=== PATIENT | female | born 1985 | race Caucasian/White ===

== ENCOUNTER 2017-06-05 21:02 | Inpatient (IN) | payer BC, OTHER, SELFPAY ==
[2017-06-05 21:38] VITALS: BMI 24.7
[2017-06-05 22:05] LABS: Amnisure Test RUPTURE DETECTED (No Rupture)
[2017-06-05 22:06] LABS: Amnisure Internal Control QC ACCEPTABLE (ACCEPTABLE)
[2017-06-05] MEDS: Lactated Ringer's 1,000 ML IV SCH (22:40)
[2017-06-05] MEDS ORDERED: Zolpidem Tartrate 5 MG TAB PO PRN (22:46)
[2017-06-05] MEDS ORDERED: LR / Pitocin 40 units/1000 ml 1,000 ML IV PRN (22:46)
[2017-06-05] MEDS ORDERED: Lidocaine 1% (PF) 30 ML VIAL SC PRN (22:46)
[2017-06-05] MEDS ORDERED: LR 500 ML/Oxytocin 10 units 500 ML IV SCH (22:46)
[2017-06-05] MEDS ORDERED: Acetaminophen/Codeine 30-300mg Tablet PO PRN ×2 (22:46)
[2017-06-05] MEDS ORDERED: Promethazine HCl 25 MG/ML VIAL IM PRN (22:46)
[2017-06-05] MEDS ORDERED: Ibuprofen 800 MG TAB PO PRN (22:46)
[2017-06-05] MEDS ORDERED: Ondansetron HCl/PF 4 MG/2 ML Vial IVP PRN (22:46)
[2017-06-05] MEDS ORDERED: Lactated Ringer's 1,000 ML IV SCH (23:00)
[2017-06-05 23:11] LABS: Hemoglobin 11.4 g/dL (12.0-16.0); Mean Corpuscular Hemoglobin 32.6 pg (27.0-31.0); Mean Corpuscular Volume 93.2 fl (81.0-99.0); Mean Platelet Volume 8.7 fL (7.4-10.4); Platelet Count 214 thou/uL (130-400); RBC Distribution Width 11.2 % (11.5-14.5); Red Blood Cell (RBC) Count 3.49 mill/uL (4.20-5.40); White Blood Cell (WBC) Count 10.6 thou/uL (4.8-10.8)
[2017-06-05] MEDS ORDERED: DISCONTINUE ALL PREVIOUS NARCOTICS FS SCH (23:45)
[2017-06-05 23:48] LABS: Syphilis Antibody Nonreactive (Nonreactive); Syphilis Antibody Index 0.02 S/CO (<1.00 Non-Reactive)
[2017-06-05 23:54] LABS: HBSAg Index 0.19 S/CO (0-0.99); Hep B Surf Ag Non-Reactive S/CO (NonReactive)
[2017-06-06] MEDS: Bupivacaine 0.5% 20 ML, Fentanyl 400 MCG in Sodium Chloride 0.9% 72 ML EPIDURAL SCH ×3 (00:35→20:52)
[2017-06-06] MEDS ORDERED: Eucerin (Mineral Oil/Petrolatum,White) 30 gm Jar TOP PRN ×2 (00:38→23:53)
[2017-06-06] MEDS ORDERED: Acetaminophen 325 MG TAB PO PRN (00:38)
[2017-06-06] MEDS ORDERED: Promethazine HCl 25 MG/ML VIAL IM PRN ×2 (00:38→23:53)
[2017-06-06] MEDS ORDERED: Lactated Ringer's 500 ML IV PRN (00:38)
[2017-06-06] MEDS ORDERED: Ondansetron HCl/PF 4 MG/2 ML Vial IVP PRN ×3 (00:38→23:53)
[2017-06-06] MEDS ORDERED: Naloxone HCl 0.4 mg/ml Vial IVP PRN ×4 (00:38→23:53)
[2017-06-06] MEDS ORDERED: diphenhydrAMINE 50 MG/ML VIAL IVP PRN ×2 (00:38→23:53)
[2017-06-06] MEDS ORDERED: ePHEDrine/0.9% NaCl/PF SYRINGE 50 mg/10 ml SLOW IVP PRN (00:38)
[2017-06-06] MEDS ORDERED: Communication Order-Pharmacy FS SCH ×2 (00:45→23:45)
[2017-06-06] MEDS ORDERED: Fentanyl 4mcg/Marcaine 0.1% Cassette 100 ML EPIDURAL SCH (00:45)
[2017-06-06] MEDS: Lactated Ringer's 1,000 ML IV SCH ×3 (01:20→21:35)
--- NOTE | 2017-06-06 04:00 | PDOC.LDHP ---
Labor and Delivery H&P Chief complaint: contractions, loss of fluid HPI: 31 yo G1 @ 38w0d who presents with c/o SROM and early labor. Anetpartum course complicated by h/o HSV, on suppression and depression, on Prozac. Current gestational age (weeks): 38 Due date: 06/20/17 Dating criteria: first trimester ultrasound Grav: 1 Para: 0 Current complications: none Abnormal US findings: No Past Medical History: HSV, Depression Current medications: pre- vitamins, other (Valtrex, Prozac) Previous surgical history: other (Breast augmentation) Allergies/Adverse Reactions: Allergies Allergy/AdvReac Type Severity Reaction Status Date / Time No Known Drug Allergies Allergy Verified 06/05/17 21:22 Social history: none - Physical Exam Vital signs reviewed and normal: yes FHT: category 2 (130s, mod jhon, +accels, one prolonged decel recently with recovery) [place] contractions every: q1-3 min - Vaginal Exam cm dilated: 4 (per RN ) Effacement: 100% Station: -2 - OB Labs Blood type: O RH: positive Antibody Screen: negative HIV: negative RPR: negative HEPSAg: negative 1 hour GCT: positive 3 hour GTT: negative GBS: negative Urine drug screen: not done Rubella: immune - Assessment 38 week IUP Latent labor SROM Category 2 FHTs, resolved h/o HSV Depression - Plan Plan: admit to L&D, labor augmentation if indicated, informed consent obtained, anesthesia consult for pain management -: On HSV suppression, no prodromal sx Monitor FHTs, suspect due to tachysystole which has resolved and FHTs improved.
[2017-06-06] MEDS ORDERED: Ketorolac Tromethamine 30 MG/ML VIAL ONE ×2 (12:02→23:13)
[2017-06-06] MEDS ORDERED: Ondansetron HCl/PF 4 MG/2 ML Vial ONE ×3 (12:02→23:33)
--- NOTE | 2017-06-06 17:19 | PDOC.LDPN ---
Labor & Delivery Progress Note - Subjective Subjective: comfortable - Objective Vital signs reviewed and normal: yes General: NAD Uterine fundus: non tender SVE: 7 Effacement: 75% Station: 0 FHT: category 1 (130s, mod jhon, +accels, no decels ) [place] contractions every: q2 min - Assessment (1) 38 weeks gestation of Code(s): Z3A.38 - 38 WEEKS GESTATION OF Current Visit: Yes Status : Acute (2) Active labor Code(s): SEO9753 - Current Visit: Yes Status: Acute -: Noted increased swelling of cervical exam, fetus in OP position, Manual rotation performed to CECIL position. Continue pitocin, adequate MVUs noted. Maternal position in hands/knees. Continue to monitor. Discussed with pt if no change, would recommend PLTCS, however, will allow for additional time currently.
[2017-06-06] MEDS ORDERED: CEFAZOLIN/Water 2 GM/20 ML SYRINGE ONE (22:18)
--- NOTE | 2017-06-06 22:23 | PDOC.LDPN ---
Labor & Delivery Progress Note - Subjective Subjective: comfortable - Objective Vital signs reviewed and normal: yes General: NAD Uterine fundus: non tender Dilation: 7-8 Effacement: 90% Station: 0 FHT: category 2 (140s, mod jhon, +accels, occasional late decels ) [place] contractions every: q2 min - Assessment (1) 38 weeks gestation of Code(s): Z3A.38 - 38 WEEKS GESTATION OF Current Visit: Yes Status : Acute (2) Active labor Code(s): FXT3613 - Current Visit: Yes Status: Acute -: SVE without significant change in last 8-9 hours. Protracted labor course. s/p manual rotation. Discussed protracted course with pt and recommended PLTCS due to arrest of dilation as exam by me remains largely unchanged. Pt amenable to procedure. To OR for PLTCS. Ancef and Azithromycin PPX.
[2017-06-06] MEDS ORDERED: Azithromycin 500 MG in Sodium Chloride 0.9% 250 ML 250 ML IVPB SCH (22:30)
[2017-06-06] MEDS ORDERED: CEFAZOLIN/Water 2 GM/20 ML SYRINGE SLOW IVP SCH (22:30)
[2017-06-06] MEDS ORDERED: Bicitra 30 ML UDCUP PO SCH (22:30)
[2017-06-06] MEDS ORDERED: Bicitra 30 ML UDCUP ONE (22:31)
[2017-06-06] MEDS ORDERED: EPINEPHrine 1 MG/ML AMP ONE (22:34)
[2017-06-06] MEDS ORDERED: Lidocaine 2% 10 ML INJ ONE (22:34)
[2017-06-06] MEDS ORDERED: Fentanyl 100 MCG/2 ML VIAL ONE (23:12)
[2017-06-06] MEDS ORDERED: Oxytocin 10 UNITS/ML VIAL ONE (23:13)
[2017-06-06] MEDS ORDERED: Morphine PF 1 MG/ML SYR IVP SCH (23:15)
[2017-06-06] MEDS ORDERED: Ketorolac Tromethamine 30 MG/ML VIAL IVP SCH (23:45)
[2017-06-06 23:48] LABS: Actual Bicarbonate (HCO3a) 26.6 mEq/L (22-26); Base Excess (BEa) -2.8 mEq/L (0 (+/-) 2.5)
[2017-06-06] MEDS ORDERED: Meperidine HCl/PF 25 MG/ML VIAL SLOW IVP PRN (23:53)
[2017-06-06] MEDS ORDERED: Promethazine HCl 25 MG SUPP PR PRN (23:53)
[2017-06-06] MEDS ORDERED: Naloxone HCl 0.4 mg/ml Vial IV PRN (23:53)
[2017-06-06] MEDS ORDERED: HYDROmorphone 2 MG/ML VIAL SLOW IVP PRN (23:53)
[2017-06-06] MEDS ORDERED: Acetaminophen 1,000 MG in Premix Bag 1 BAG IVPB PRN (23:55)
--- NOTE | 2017-06-07 00:09 | PDOC.OPDEL ---
OB Operative/Delivery Note Delivery Dr/Surgeon: Deepa Prince DO Assist: Brooke Cobian MD Pre-Delivery Diagnosis: arrest of dilation Procedure/Post Delivery Dx: primary low transverse CS Weeks gestation: 38 Anesthesia: epidural - Findings A Sex: male - 1 min: 3 - 5 min: 8 - Additional Findings/Plan Placenta delivered: spontaneous findings: low transverse hysterotomy with extension (extension into left uterine vessels), normal uterus, normal tubes, normal ovaries, other ( small broad ligament hematoma near left apex of hysterotomy, stable and not expanding (approx 2 - 3 cm)) Estimated blood loss: 800 cc Compilations/Other Findings: in cephalic presentation in OP position Clear Amniotic fluid Normal appearing placenta Post delivery plan: routine recovery (Dictation [id number])
[2017-06-07] MEDS ORDERED: Ketorolac Tromethamine 30 MG/ML VIAL ONE (01:54)
[2017-06-07] MEDS ORDERED: Meperidine HCl/PF 25 MG/ML VIAL SLOW IVP PRN (02:05)
[2017-06-07] MEDS ORDERED: Meperidine HCl/PF 25 MG/ML VIAL ONE (02:08)
[2017-06-07] MEDS ORDERED: LR w/ Pitocin 40 units/1000 ML BAG IV SCH (03:29)
[2017-06-07] MEDS ORDERED: Methylergonovine 0.2 MG/ML VIAL IM PRN (03:29)
[2017-06-07] MEDS ORDERED: Misoprostol 200 MCG TAB PR SCH (03:29)
[2017-06-07 06:01] LABS: Band 15 % (5-11); Hemoglobin 10.1 g/dL (12.0-16.0); Lymphocytes 4 % (21-51); MDiff Complete? YES; Mean Corpuscular Hemoglobin 31.9 pg (27.0-31.0); Mean Corpuscular Volume 93.9 fl (81.0-99.0); Monocytes 3 % (0-10); Neutrophil 78 % (42-75); Platelet Count 195 thou/uL (130-400); RBC Distribution Width 11.4 % (11.5-14.5); Red Blood Cell (RBC) Count 3.17 mill/uL (4.20-5.40); White Blood Cell (WBC) Count 23.5 thou/uL (4.8-10.8)
[2017-06-07] MEDS: Ketorolac Tromethamine 30 MG/ML VIAL IVP SCH ×3 (06:10→18:19)
[2017-06-07] MEDS: Prenatal Vitamin 1 TAB PO SCH (10:33)
[2017-06-07] MEDS: Simethicone Chewable 80 MG TAB PO PRN ×2 (10:33→18:15)
[2017-06-07] MEDS: Lactated Ringer's 1,000 ML IV SCH ×2 (10:33→18:19)
--- NOTE | 2017-06-07 12:17 | PDOC.PP ---
Post Progress Note Post Day #: 1 Subjective: Pain controlled. Minimal pain. Holguin still in place. PO intake tolerated: yes Flatus: no Ambulation: no Vital Signs (12 hours) Temp Pulse Resp BP BP Pulse Ox 06/07/17 11:00 98.1 F 64 18 117/62 100 06/07/17 08:00 98.4 F 73 20 06/07/17 07:51 98.4 F 73 20 111/60 06/07/17 03:45 98.3 F 65 20 136/67 136/67 06/07/17 02:45 98.3 F 65 20 119/58 L Weight Weight 149 lb - Physical Examination General: NAD Cardiovascular: RRR Respiratory: non-labored breathing Abdominal: no distention, appropriately TTP Fundus firm & at: Below umbilicus Extremities: negative homans (B) Skin: CS incision dry & intact Neurological: no gross focal deficits Psychiatric: A&Ox3 Result Diagrams: 06/07/17 05:15 Additional Labs: Post Labs Blood Type O POSITIVE 06/05/17 22:47 Hep Bs Antigen Non-Reactive S/CO (NonReactive) 06/05/17 22:47 (1) 38 weeks gestation of Code(s): Z3A.38 - 38 WEEKS GESTATION OF Status: Resolved (2) Active labor Code(s): FRQ1973 - Status: Resolved (3) delivery delivered Code(s): O82 - ENCOUNTER FOR DELIVERY WITHOUT INDICATION Status: Acute (4) Arrest of dilation, delivered, current hospitalization Code(s): O62.1 - SECONDARY UTERINE INERTIA Status: Acute - Assessment/Plan PPD1 VSSAF Continue post /op care. Remove holguin, ambulate.
--- NOTE | 2017-06-07 12:57 | ADD-OP ---
ADDENDUM DATE OF SERVICE: 06/06/2017 I was present and scrubbed to assist the primary low transverse with Dr. Deepa Prince. Nelly hamilton see her operative note for full details.
--- NOTE | 2017-06-07 14:15 | OP ---
DATE OF PROCEDURE: 06/06/2017 PREOPERATIVE DIAGNOSES 1. A 38-week intrauterine . 2. Arrest of dilation. 3. Spontaneous rupture of membranes. POSTOPERATIVE DIAGNOSES: 1. A 38-week intrauterine . 2. Arrest of dilation. 3. Spontaneous rupture of membranes. PROCEDURE: Primary low transverse section via Pfannenstiel skin incision. SURGEON: Deepa Prince D.O. COOK DESSERT: Brooke Cobian M.D. COMPLICATIONS: None. ESTIMATED BLOOD LOSS: 800 mL. IV FLUIDS: 1400 mL. URINE OUTPUT: 200 mL. ANESTHESIA: Epidural. FINDINGS: A normal appearing uterus, fallopian tubes and ovaries bilaterally. Clear amniotic fluid. Normal appearing placenta. A viable male infant in cephalic presentation, occiput posterior positi on with Apgars were 3 and 8. INDICATIONS FOR THE PROCEDURE: Ms. Snehal Goyal is a 31-year-old at 38 weeks who presente d in latent labor with spontaneous rupture of membranes. The patient progressed into latent labor an d then required augmentation with Pitocin to achieve active labor. She progressed to 7-8 cm; however , did not make change for approximately 8 hours. She had also undergone a manual rotation of the fet al head as it was thought that the fetus was in occiput posterior position contributing to arrest of dilation. Due to arrest of dilation a primary delivery was recommended. The patient was am enable to the procedure. PROCEDURE IN DETAIL: The patient's epidural was additionally dosed prior to being brought to the ope rating room. She was then brought to the operating room and placed in a supine position with a leftw aspen tilt. She had a Vila that was previously placed. She was given Ancef and azithromycin for surg ical prophylaxis. The patient's abdomen was prepped and draped in sterile fashion. An official time out was performed. Anesthesia was assessed and proved to be adequate. A Pfannenstiel skin incision was made using the scalpel to underlying fascial layer. The fascia was then incised in the midline a nd extended bilaterally with Hernandez scissors. Superior aspect of the fascial incision was grasped usin g Ghazal clamp and dissected free from the underlying rectus abdominis muscles and the same was perfo rmed to the inferior aspect of the fascial incision. The rectus abdominis were bluntly . T he peritoneum was grasped using hemostats and incised using Metzenbaum scissors. Incision was extend ed using blunt and sharp dissection. Augie O retractor was placed into the abdomen and appropriatel y secured. A low transverse hysterotomy was made using the scalpel. The hysterotomy was created usi ng blunt dissection and the membranes were ruptured using blunt dissection noting clear amniotic flui d. Infant was delivered in cephalic presentation, occiput posterior position. The cord was clamped and cut. was handed to the waiting Neonatology team. Cord sample for cord gases was obtained as well as cord blood. The placenta was delivered spontaneously intact. The uterus was cleared of all clot and debris. There was extension into uterine vessel on the left aspect of the uterus. The hysterotomy was closed in a running locking fashion creating hemostasis at the left apices as well. There was a small stable broad ligament hematoma that was noted and evaluated, approximately 2-3 cm i n size that remained stable. As I mentioned above the hysterotomy was closed in running locking fash ion and hemostatic. The pelvis was irrigated and cleared of all clot and debris. The fallopian tube s and ovaries were evaluated and normal in appearance. The hysterotomy was again evaluated and hemos tatic. Augie O retractor was removed from the abdomen. The peritoneum was closed in a running fash ion. The rectus abdominis was reevaluated and hemostatic with the use of the Bovie. The fascia was closed in a running fashion using 0 PDS. Subcutaneous layer was copiously irrigated and hemostatic w ith the use of Bovie. Subcutaneous layer was closed using 3-0 Vicryl and the skin was closed using 4 -0 Monocryl and Dermabond. The patient tolerated the procedure well. There were no complications. Mother and infant were both transferred to routine recovery. All counts were correct x3.
[2017-06-07] MEDS: HYDROcodone/Acetaminophen 5/325 mg Tablet PO PRN ×2 (14:17→18:19)
[2017-06-07] MEDS: Ibuprofen 800 MG TAB PO SCH (19:59)
[2017-06-08] MEDS: HYDROcodone/Acetaminophen 5/325 mg Tablet PO PRN ×3 (00:12→19:10)
[2017-06-08] MEDS: Lactated Ringer's 1,000 ML IV SCH ×3 (01:03→17:58)
[2017-06-08] MEDS: Ibuprofen 800 MG TAB PO SCH ×3 (05:37→21:41)
[2017-06-08] MEDS: Simethicone Chewable 80 MG TAB PO PRN (10:20)
[2017-06-08] MEDS: Prenatal Vitamin 1 TAB PO SCH (10:20)
--- NOTE | 2017-06-08 10:29 | PDOC.PP ---
Post Progress Note Post Day #: 2 PO intake tolerated: yes Flatus: yes Ambulation: yes Vital Signs (12 hours) Temp Pulse Resp BP 06/08/17 08:05 98.3 F 74 18 06/08/17 08:00 98.3 F 74 18 109/53 L 06/08/17 00:00 97.9 F 65 18 118/57 L Weight Weight 149 lb - Physical Examination General: NAD Cardiovascular: RRR Respiratory: non-labored breathing Abdominal: no distention, appropriately TTP Fundus firm & at: below umbilicus Extremities: negative homans (B) Skin: CS incision dry & intact Neurological: no gross focal deficits Psychiatric: A&Ox3 Result Diagrams: 06/07/17 05:15 Additional Labs: Post Labs Blood Type O POSITIVE 06/05/17 22:47 Hep Bs Antigen Non-Reactive S/CO (NonReactive) 06/05/17 22:47 (1) 38 weeks gestation of Code(s): Z3A.38 - 38 WEEKS GESTATION OF Status: Resolved (2) Active labor Code(s): [id number] - Status: Resolved (3) delivery delivered Code(s): O82 - ENCOUNTER FOR DELIVERY WITHOUT INDICATION Status: Acute (4) Arrest of dilation, delivered, current hospitalization Code(s): O62.1 - SECONDARY UTERINE INERTIA Status: Acute - Assessment/Plan PPD 2 VSSAF Breast feeding. Continue post /op care. Plan for d/c tomorrow due to continue assistance.
[2017-06-09] MEDS: Ibuprofen 800 MG TAB PO SCH ×2 (04:20→13:44)
[2017-06-09] MEDS ORDERED: Ibuprofen 800 MG TAB PO SCH (06:00)
[2017-06-09] MEDS ORDERED: Lanolin Ointment 7 GM TUBE TOP PRN (07:25)
[2017-06-09 08:19] VITALS: BP 118/58; TEMP 98.4
[2017-06-09] MEDS: HYDROcodone/Acetaminophen 5/325 mg Tablet PO PRN ×2 (08:41→15:34)
[2017-06-09] MEDS: Prenatal Vitamin 1 TAB PO SCH (08:41)
[2017-06-09] MEDS: Simethicone Chewable 80 MG TAB PO PRN (08:43)
--- NOTE | 2017-06-09 08:50 | PDOC.PP ---
Post Progress Note Post Day #: 3 Subjective: Breast feeding. No concerns. Pain controlled. Minimal lochia. PO intake tolerated: yes Flatus: yes Ambulation: yes Vital Signs (12 hours) Temp Pulse Resp BP 06/09/17 08:00 98.4 F 75 18 118/58 L Weight Weight 149 lb - Physical Examination General: NAD Cardiovascular: RRR Respiratory: non-labored breathing Abdominal: no distention, appropriately TTP Fundus firm & at: below umbilicus Extremities: negative homans (B) Skin: CS incision dry & intact (with dermabond) Neurological: no gross focal deficits Psychiatric: A&Ox3 Result Diagrams: 06/07/17 05:15 Additional Labs: Post Labs Blood Type O POSITIVE 06/05/17 22:47 Hep Bs Antigen Non-Reactive S/CO (NonReactive) 06/05/17 22:47 (1) 38 weeks gestation of Code(s): Z3A.38 - 38 WEEKS GESTATION OF Status: Resolved (2) Active labor Code(s): [id number] - Status: Resolved (3) delivery delivered Code(s): O82 - ENCOUNTER FOR DELIVERY WITHOUT INDICATION Status: Acute (4) Arrest of dilation, delivered, current hospitalization Code(s): O62.1 - SECONDARY UTERINE INERTIA Status: Acute - Assessment/Plan PPD3 VSSAF Meeting requirements for discharge. D/C home today with infant. F/u 2 weeks.
== END 2017-06-09 17:20 | disposition home or self-care (01) | DRG 765 ==
LOC: L&D/OP 21:02 → L&D 23:06 → 3SW 06-07 03:06
PROVIDERS: ADMIT Obstetrics & Gynecology; ATTEND Obstetrics & Gynecology
PROC: 10D00Z1 Extraction of Products of Conception, Low, Open Approach (ICD-10-PCS; principal; 2017-06-06)
PROC: 10S0XZZ Reposition Products of Conception, External Approach (ICD-10-PCS; 2017-06-06)
DX: O64.0XX0 Obstructed labor due to incomplete rotation of fetal head, not applicable or unspecified; O62.1 Secondary uterine inertia; O98.32 Other infections with a predominantly sexual mode of transmission complicating childbirth; Z37.0 Single live birth; Z3A.38 38 weeks gestation of pregnancy; A60.00 Herpesviral infection of urogenital system, unspecified; F32.9 Major depressive disorder, single episode, unspecified; O99.344 Other mental disorders complicating childbirth
CPT/HCPCS: 36415; 51702; 76815; 82805; 84112; 85025; 85027; 86780; 87340; 99285; J0131; J0171; J0456; J1885; J2001; J2175; J2274; J2405; J2590; J3010; J3490; J7050; J7120

== ENCOUNTER 2019-05-14 09:44 | Inpatient (IN) | payer BC ==
--- NOTE | 2019-05-14 08:47 | PDOC.LDHP ---
Labor and Delivery H&P Chief complaint: scheduled section HPI: 33 yo @ 39w3d by 7 week CRL who presents for RCS. h/o LTCS for arrest of dilation. Declines TOLAC. H/O HSV on suppression and anxiety on Prozac. Current gestational age (weeks): 39 Due date: 05/18/19 Dating criteria: first trimester ultrasound Grav: 2 Para: 1 OB History Details: LTCS x1 due to arrest of dilation Current complications: none Abnormal US findings: No Current medications: pre- vitamins, other (Prozac Valtrex) Previous surgical history: low tranverse CS Allergies/Adverse Reactions: Allergies Allergy/AdvReac Type Severity Reaction Status Date / Time No Known Drug Allergies Allergy Verified 06/05/17 21:22 Social history: none - Physical Exam Vital signs reviewed and normal: yes General: NAD Heart: RRR Lungs: nonlabored breathing Abdomen: gravid Extremeties: no edema FHT: category 1 (140s, mod jhon, +accels, no decels) [place] contractions every: some ctx - OB Labs Blood type: O RH: positive Antibody Screen: negative HIV: negative RPR: negative HEPSAg: negative 1 hour GCT: negative GBS: negative Urine drug screen: negative Rubella: immune - Assessment 33 yo @ 39w3d H/O LTCS x1 H/O HSV Anxiety - Plan Plan: admit to L&D, to OR for section, informed consent obtained, anesthesia consult for pain management
[2019-05-14] MEDS ORDERED: Ondansetron PF 4 MG/2 ML Vial IVP PRN ×2 (10:12→12:58)
[2019-05-14] MEDS ORDERED: hydrALAZINE 20 MG/ML VIAL SLOW IVP PRN ×2 (10:12→15:10)
[2019-05-14] MEDS ORDERED: Bicitra 30 ML UDCUP PO SCH (10:12)
[2019-05-14] MEDS ORDERED: CEFAZOLIN 2 GM in Premix Bag 1 BAG IVPB SCH (10:12)
[2019-05-14] MEDS ORDERED: Butorphanol Tartrate 1 MG/ML VIAL SLOW IVP PRN (10:12)
[2019-05-14] MEDS ORDERED: Acetaminophen 500 MG TAB PO PRN (10:12)
[2019-05-14] MEDS ORDERED: Promethazine HCl 25 MG/ML VIAL IM PRN ×2 (10:12→12:58)
[2019-05-14 10:21] VITALS: BMI 24.7
[2019-05-14] MEDS: Lactated Ringer's 1,000 ML IV SCH ×4 (10:50→15:30)
[2019-05-14 10:59] LABS: Hemoglobin 11.7 g/dL (12.0-16.0); Mean Corpuscular HGB CONC 33.3 g/dL (32.0-36.0); Mean Corpuscular Hemoglobin 31.1 pg (27.0-31.0); Mean Corpuscular Volume 93.3 fL (78.0-98.0); Mean Platelet Volume 8.2 fL (7.4-10.4); Platelet Count 275 thou/uL (130-400); RBC Distribution Width 11.9 % (11.5-14.5); Red Blood Cell (RBC) Count 3.76 mill/uL (4.20-5.40); White Blood Cell (WBC) Count 9.8 thou/uL (4.8-10.8)
[2019-05-14 11:42] LABS: Syphilis Antibody Nonreactive (Nonreactive); Syphilis Antibody Index 0.04 S/CO (<1.00 Non-Reactive)
[2019-05-14 11:43] LABS: HBSAg Index 0.28 S/CO (0-0.99); HIV (1/2) Antibody/Antigen Non-Reactive (NonReactive); HIV 1/2 INDEX 0.09 S/CO (<1.00); Hep B Surf Ag Non-Reactive S/CO (NonReactive)
[2019-05-14] MEDS ORDERED: Fentanyl 100 MCG/2 ML VIAL ONE (11:58)
[2019-05-14] MEDS ORDERED: MORPHINE 5 MG/10 ML PF VIAL ONE (11:58)
[2019-05-14] MEDS ORDERED: EPHEDRINE 25 MG/5 ML SYRINGE ONE (11:58)
[2019-05-14] MEDS ORDERED: Dexamethasone 4 mg/ml Vial ONE (12:00)
[2019-05-14] MEDS ORDERED: Ketorolac Tromethamine 30 MG/ML VIAL ONE (12:00)
[2019-05-14] MEDS ORDERED: Oxytocin 10 UNITS/ML VIAL ONE (12:00)
[2019-05-14] MEDS ORDERED: Ondansetron PF 4 MG/2 ML Vial ONE (12:00)
[2019-05-14] MEDS ORDERED: PHENYLEPHRINE-NS 100 MCG/ML 10 ML SYRINGE ONE (12:00)
[2019-05-14] MEDS ORDERED: L&D-Morphine 4 MG/ML VIAL SLOW IVP PRN (12:58)
[2019-05-14] MEDS ORDERED: HYDROmorphone 2 MG/ML VIAL SLOW IVP PRN (12:58)
[2019-05-14] MEDS ORDERED: Naloxone HCl 0.4 mg/ml Vial IV PRN (12:58)
[2019-05-14] MEDS ORDERED: Meperidine HCl/PF 25 MG/ML VIAL SLOW IVP PRN (12:58)
[2019-05-14] MEDS ORDERED: Ondansetron HCl/PF 4 MG/2 ML Vial IVP PRN (12:58)
[2019-05-14] MEDS ORDERED: Promethazine HCl 25 MG SUPP PR PRN (12:58)
[2019-05-14] MEDS ORDERED: Naloxone HCl 0.4 mg/ml Vial IVP PRN ×2 (12:58)
[2019-05-14] MEDS ORDERED: diphenhydrAMINE 50 MG/ML VIAL IVP PRN (12:58)
[2019-05-14] MEDS ORDERED: Communication Order-Pharmacy FS SCH (13:00)
--- NOTE | 2019-05-14 13:52 | PDOC.OPDEL ---
OB Operative/Delivery Note Delivery Dr/Surgeon: Deepa Prince DO Assist: Marcin Lloyd DO Pre-Delivery Diagnosis: scheduled section Procedure/Post Delivery Dx: repeat low transverse CS Weeks gestation: 39 Anesthesia: spinal - Findings A Sex: male Weight: 7 lb 8 oz - 1 min: 8 - 5 min: 9 - Additional Findings/Plan Placenta delivered: spontaneous findings: low transverse hysterotomy with extension, normal uterus, normal tubes, normal ovaries Estimated blood loss: QBL 530 cc Compilations/Other Findings: Adhesions from dome of the bladder to uterus Very thin LORI with essentially no LORI after delivery of fetus Intact dome of the bladder; clear urine at completion of procedure Clear amniotic fluid in cephalic presentation Normal appearing placenta Post delivery plan: routine recovery
[2019-05-14] MEDS ORDERED: diphenhydrAMINE 25 MG CAP PO PRN (15:10)
[2019-05-14] MEDS ORDERED: Lanolin Ointment 7 GM TUBE TOP PRN (15:10)
[2019-05-14] MEDS ORDERED: Acetaminophen 325 MG TAB PO PRN (15:10)
[2019-05-14] MEDS ORDERED: Misoprostol 200 MCG TAB PR PRN (15:10)
[2019-05-14] MEDS ORDERED: Methylergonovine 0.2 MG/ML VIAL IM PRN (15:10)
[2019-05-14] MEDS ORDERED: Bisacodyl 10 MG SUPP PR PRN (15:10)
[2019-05-14] MEDS ORDERED: Fentanyl 100 MCG/2 ML VIAL SLOW IVP SCH (17:00)
[2019-05-14] MEDS: Ketorolac Tromethamine 30 MG/ML VIAL IVP PRN (20:22)
[2019-05-15] MEDS ORDERED: Butorphanol Tartrate 1 MG/ML VIAL SLOW IVP PRN (01:00)
[2019-05-15] MEDS: Ketorolac Tromethamine 30 MG/ML VIAL IVP PRN (02:04)
[2019-05-15] MEDS: Docusate Calcium (SURFAK) 240 MG CAP PO SCH ×3 (02:05→20:16)
[2019-05-15] MEDS: Ferrous Sulfate 325 MG TAB PO SCH ×3 (02:05→16:53)
[2019-05-15 06:29] LABS: #Basophils 0.1 thou/uL (0.0-0.2); #Eosinphils 0.1 thou/uL (0.0-0.7); #Lymphocytes 2.4 thou/uL (1.20-3.40); #Monocytes 0.8 thou/uL (0.11-0.59); #Neutrophils 9.3 thou/uL (1.40-6.50); %Basophils 0.6 % (0.0-1.0); %Eosinophils 0.6 % (0.0-10.0); %Lymphocytes 19.1 % (21.0-51.0); %Monocytes 6.3 % (0.0-10.0); %Neutrophils 73.4 % (42.0-75.0); Hemoglobin 9.9 g/dL (12.0-16.0); Mean Corpuscular HGB CONC 33.8 g/dL (32.0-36.0); Mean Corpuscular Volume 94.7 fL (78.0-98.0); Mean Platelet Volume 7.9 fL (7.4-10.4); Platelet Count 224 thou/uL (130-400); RBC Distribution Width 11.9 % (11.5-14.5); White Blood Cell (WBC) Count 12.7 thou/uL (4.8-10.8)
--- NOTE | 2019-05-15 07:28 | OP ---
DATE OF PROCEDURE: 05/14/2019 PREOPERATIVE DIAGNOSES: 1. A 39-week 2-day intrauterine . 2. History of low-transverse delivery x1. 3. History of genital herpes, on suppression. 4. History of anxiety, on Prozac. POSTOPERATIVE DIAGNOSES: 1. A 39-week 2-day intrauterine . 2. History of low-transverse delivery x1. 3. History of genital herpes, on suppression. 4. History of anxiety, on Prozac. PROCEDURE PERFORMED: Repeat low transverse delivery via Pfannenstiel skin incision. SECURITY OFFICER: Marcin Lloyd DO COMPLICATIONS: None. QUANTITATIVE BLOOD LOSS: 530 mL. INDICATIONS FOR THE PROCEDURE: Ms. Snehal Goyal is a 33-year-old, G1, P0, at 39 weeks and 2 days, who presents for her repeat delivery. The patient had declined a trial of labor. FINDINGS: Dense scar along the fascia, adhesions from the dome of the bladder up to the very thin area of the lower uterine segment. in cephalic presentation. Clear amniotic fluid. Normal-appearing placenta. Minimal to no healthy lower uterine segment tissue able to be reapproximated after the completion of the procedure. See the details of the operation down below. DESCRIPTION OF PROCEDURE: The patient was brought to the operating room. She was given spinal anesthesia with Duramorph. She was placed in supine position with a leftward tilt. She was prepped and draped in a sterile fashion. Anesthesia was assessed and proven to be adequate. An official time-out was performed. She was given Ancef for surgical prophylaxis. A Pfannenstiel skin incision was made using the scalpel. This was carried down to the underlying fascial layer using the scalpel. The fascia was incised in the midline using the scalpel and extended bilaterally using Hernandez scissors. The superior aspect of the fascial incision was grasped using Ghazal clamps, tented upward, and dissected free from the underlying rectus abdominis muscles. The same was done to the inferior aspect of the fascial incision. The peritoneum was then grasped using hemostats, elevated and incised using Metzenbaum scissors. This was extended using both blunt and sharp dissection. There were adhesions from the dome of the bladder noted at the lower uterine segment. The Augie retractor was then placed into the abdomen and secured. The adhesions were taken down as much as possible using Metzenbaum scissors trying to create a bladder flap; however, there were some areas of the bladder that were completely adherent to the portion of the cervix and lower uterine segment. They were unable to be successfully dissected off. The hysterotomy was then made above the previous lower uterine segment window due to these adhesions. This was made using the scalpel in a transverse fashion. The hysterotomy was made and extended using blunt dissection. The amniotic membranes were ruptured noting clear amniotic fluid. The infant was delivered in cephalic presentation without difficulty and was handed to the waiting neonatology team. Cord blood was obtained. The placenta was delivered spontaneously intact. The uterus was cleared of all clot and debris. The remaining small area of the lower uterine segment was then closed in a running locking fashion along the hysterotomy incorporating healthy myometrium at the superior aspect and the thin area on the inferior aspect. After closure of this area, there was noted to still be a defect on the right apex of the closure that was either from a tear pulling the suture through, where it was incomplete closure because of the very very thin area of the lower uterine segment. Therefore, the bladder was dissected further off and there was a pocket that was created to find the posterior aspect of the bladder and the very minimal amount of lower uterine segment tissue and also cut into the endocervical component. Therefore, the myometrium just superior to the endocervical component was then reapproximated up toward the hysterotomy that had been closed and this was run in a complete fashion from the right apex all the way over to the left apex to help reinforce the tissue, so essentially the patient had a double-layer hysterotomy that was closed. The area around the bladder was evaluated. The bladder was backfilled using sterile water, noting a watertight seal. There was area of slight oozing along the dome of the bladder, where a FloSeal was placed along the dural edges of the lower uterine segment/endocervical tissue and the dome of the bladder. This was applied for approximately a minute and then evaluated and noted to be hemostatic. The pelvis had been irrigated and cleared of clot and debris prior to this placement. The adnexa were evaluated and normal in appearance including bilateral fallopian tubes and ovaries. The Augie O retractor was then removed from the abdomen. The hysterotomy was again evaluated, noted to be hemostatic to this area. The rectus abdominis muscles were evaluated and hemostatic. The fascia was closed in a running fashion using 0 PDS. Subcutaneous layer was copiously irrigated and hemostatic using the Bovie. The subcutaneous layer was closed using 3-0 Vicryl. The skin was closed using 4-0 Monocryl and Dermabond. Overall, the patient tolerated the procedure well. There were no complications. However, the findings of her surgery were reviewed and I recommended that she not have any additional pregnancies due to the severity of the scarring and minimal to almost no lower uterine segment without severe bladder adhesions. We will discuss this further. All counts were correct x3. Job ID: [id number]
[2019-05-15] MEDS: HYDROcodone/Acetaminophen 5/325 mg Tablet PO PRN ×4 (08:21→20:16)
--- NOTE | 2019-05-15 08:21 | PDOC.PP ---
Post Progress Note Post Day #: 1 Subjective: Pt feeling dizzy this morning when attempted to ambulate to the restroom. She is passing flatus and denies any n/v. She has tolerated liquid intake. Minimal to no vaginal bleeding. Breast feeding. PO intake tolerated: yes Flatus: yes Ambulation: no Weight Weight 149 lb - Physical Examination General: NAD Cardiovascular: RRR Respiratory: clear to auscultation bilaterally, non-labored breathing Abdominal: no distention, appropriately TTP Fundus firm & at: below umbilicus Extremities: negative homans (B) Deviation from normal: Dressing c/d/i Neurological: no gross focal deficits Psychiatric: A&Ox3, normal affect Result Diagrams: 05/15/19 06:01 Additional Labs: Post Labs Blood Type O POSITIVE 05/14/19 10:38 Hep Bs Antigen Non-Reactive S/CO (NonReactive) 05/14/19 10:38 (1) Anemia Code(s): D64.9 - ANEMIA, UNSPECIFIED Status: Acute (2) delivery delivered Code(s): O82 - ENCOUNTER FOR DELIVERY WITHOUT INDICATION Status: Acute - Assessment/Plan PPD1 VSSAF STAT CBC this morning due to dizziness. VSS. IVF bolus. Replace holguin to keep strict I&Os. Closely monitor. Reviewed difficulty of surgery again with pt.
[2019-05-15] MEDS ORDERED: Lactated Ringer's 1,000 ML IV SCH (08:30)
[2019-05-15 08:56] LABS: #Basophils 0.1 thou/uL (0.0-0.2); #Eosinphils 0.1 thou/uL (0.0-0.7); #Lymphocytes 2.1 thou/uL (1.20-3.40); #Monocytes 0.9 thou/uL (0.11-0.59); #Neutrophils 8.7 thou/uL (1.40-6.50); %Basophils 0.5 % (0.0-1.0); %Eosinophils 0.4 % (0.0-10.0); %Monocytes 7.6 % (0.0-10.0); %Neutrophils 73.6 % (42.0-75.0); Hemoglobin 10.1 g/dL (12.0-16.0); Mean Corpuscular HGB CONC 33.9 g/dL (32.0-36.0); Mean Corpuscular Hemoglobin 32.1 pg (27.0-31.0); Mean Corpuscular Volume 94.8 fL (78.0-98.0); Mean Platelet Volume 7.9 fL (7.4-10.4); Platelet Count 229 thou/uL (130-400); Red Blood Cell (RBC) Count 3.15 mill/uL (4.20-5.40); White Blood Cell (WBC) Count 11.9 thou/uL (4.8-10.8)
[2019-05-15] MEDS: Prenatal Vitamin 1 TAB PO SCH (09:33)
--- NOTE | 2019-05-15 13:46 | PDOC.EVN ---
Event Note - Event Note Event Note: Pt feels better. She was evaluated by anesthesia for possible spinal h/a, she is considering blood patch however, her h/a is gone presently. CBC stable, VSS. Exam appropriate for post op. UOP good. Plan to ambulate and allow regular diet and remove holguin if able to ambulate.
[2019-05-15] MEDS: Simethicone Chewable 80 MG TAB PO PRN (16:29)
[2019-05-15] MEDS: Ibuprofen 800 MG TAB PO SCH (20:16)
[2019-05-16] MEDS: HYDROcodone/Acetaminophen 5/325 mg Tablet PO PRN ×4 (01:58→14:09)
[2019-05-16] MEDS: Ibuprofen 800 MG TAB PO SCH ×2 (06:07→14:07)
[2019-05-16] MEDS: Prenatal Vitamin 1 TAB PO SCH (09:42)
[2019-05-16] MEDS: Simethicone Chewable 80 MG TAB PO PRN (09:42)
[2019-05-16] MEDS: Docusate Calcium (SURFAK) 240 MG CAP PO SCH (09:42)
[2019-05-16 09:43] LABS: #Eosinphils 0.1 thou/uL (0.0-0.7); #Lymphocytes 1.8 thou/uL (1.20-3.40); #Monocytes 0.7 thou/uL (0.11-0.59); #Neutrophils 8.7 thou/uL (1.40-6.50); %Basophils 0.3 % (0.0-1.0); %Eosinophils 0.7 % (0.0-10.0); %Lymphocytes 15.9 % (21.0-51.0); %Monocytes 6.1 % (0.0-10.0); %Neutrophils 76.9 % (42.0-75.0); Hemoglobin 11.1 g/dL (12.0-16.0); Mean Corpuscular HGB CONC 32.7 g/dL (32.0-36.0); Mean Corpuscular Hemoglobin 30.9 pg (27.0-31.0); Mean Corpuscular Volume 94.3 fL (78.0-98.0); Mean Platelet Volume 7.7 fL (7.4-10.4); Platelet Count 256 thou/uL (130-400); RBC Distribution Width 12.1 % (11.5-14.5); White Blood Cell (WBC) Count 11.4 thou/uL (4.8-10.8)
[2019-05-16] MEDS: Ferrous Sulfate 325 MG TAB PO SCH (09:48)
[2019-05-16] MEDS: Lactated Ringer's 1,000 ML IV SCH ×2 (09:55→14:46)
[2019-05-16 12:25] VITALS: BP 128/58; TEMP 99
--- NOTE | 2019-05-16 13:01 | PDOC.PP ---
Post Progress Note Post Day #: 2 Subjective: Pt received blood patch today and feels much better. No concerns. Minimal lochia. No dizziness. Pain controlled. Breast feeding. PO intake tolerated: yes Flatus: yes Ambulation: yes Vital Signs (12 hours) Temp Pulse Resp BP Pulse Ox 05/16/19 11:34 99.0 F 83 16 128/58 L 98 05/16/19 08:50 98.6 F 70 18 113/58 L 99 Weight Weight 149 lb - Physical Examination General: NAD Cardiovascular: RRR Respiratory: non-labored breathing Abdominal: no distention, appropriately TTP Fundus firm & at: below umbilicus Extremities: negative homans (B) Skin: CS incision dry & intact, no rash Neurological: no gross focal deficits Psychiatric: A&Ox3, normal affect Result Diagrams: 05/16/19 09:29 Additional Labs: Post Labs Blood Type O POSITIVE 05/14/19 10:38 Hep Bs Antigen Non-Reactive S/CO (NonReactive) 05/14/19 10:38 (1) Anemia Code(s): D64.9 - ANEMIA, UNSPECIFIED Status: Acute (2) delivery delivered Code(s): O82 - ENCOUNTER FOR DELIVERY WITHOUT INDICATION Status: Acute - Assessment/Plan PPD2 VSSAF D/c home today with
== END 2019-05-16 18:14 | disposition home or self-care (01) | DRG 787 ==
LOC: L&D-LIB 09:44 → L&D 10:57 → 3SW 16:03
PROVIDERS: ADMIT Obstetrics & Gynecology; ATTEND Obstetrics & Gynecology
PROC: 10D00Z1 Extraction of Products of Conception, Low, Open Approach (ICD-10-PCS; principal; 2019-05-14)
DX: O34.211 Maternal care for low transverse scar from previous cesarean delivery (principal); O98.52 Other viral diseases complicating childbirth; O99.344 Other mental disorders complicating childbirth; F41.9 Anxiety disorder, unspecified; B00.1 Herpesviral vesicular dermatitis; O99.02 Anemia complicating childbirth; D64.9 Anemia, unspecified; Z3A.39 39 weeks gestation of pregnancy; Z37.0 Single live birth
CPT/HCPCS: 36415; 51702; 62272; 85025; 85027; 86780; 86850; 86900; 86901; 87340; 87389; J0690; J1100; J1885; J2274; J2405; J2590; J3010

== ENCOUNTER 2023-03-30 16:00 | Outpatient (CLI) | payer BC | END 2023-03-30 16:01 | disposition home or self-care (01) | LOC: SLEEPLAB 16:00 | PROVIDERS: ATTEND Family Medicine | DX: G47.33 Obstructive sleep apnea (adult) (pediatric) (principal); R53.83 Other fatigue; F41.8 Other specified anxiety disorders | CPT/HCPCS: 95800 ==